=== PATIENT | male | born 1990 | race Caucasian/White ===

== ENCOUNTER 2023-03-20 14:29 | Emergency (ER) | payer MEDICAID ==
[~2023-03-20] VITALS: Ht 180.3 cm; Wt 106.0 kg
[2023-03-20] MEDS ORDERED: NAPR-56 PO (17:30)
[2023-03-20 18:04] VITALS: BP 132/93; PULSE 75; RESP 18; TEMP 98; O2SAT 98
== END 2023-03-20 19:38 | disposition home or self-care (01) ==
LOC: ER 14:30
DX: M79.644 Pain in right finger(s) (principal); M79.89 Other specified soft tissue disorders
CPT/HCPCS: 29125; 73130; 99283

== ENCOUNTER 2024-06-23 15:11 | Inpatient (IN) | payer BC, MEDICAID, OTHER ==
[~2024-06-23] VITALS: Ht 180.3 cm; Wt 103.6 kg
[2024-06-23 16:10] LABS: ALANINE AMINOTRANSFERASE 862 U/L (12-78); ALBUMIN/GLOBULIN RATIO 1.1 (1.1-1.5); ALKALINE PHOSPHATASE 172 IU/L (46-116); ANION GAP 7 (8-16); ASPARTATE AMINO TRANSFERASE 381 U/L (10-37); BILIRUBIN,TOTAL 0.8 MG/DL (0.1-1.0); BLOOD UREA NITROGEN 8 MG/DL (7-18); BUN/CREATININE RATIO 11.3 (10.0-20.0); CHLORIDE 104 MMOL/L (99-107); CREATININE 0.71 MG/DL (0.60-1.10); GLUCOSE 121 MG/DL (70-104); LIPASE 19 U/L (16-77); POTASSIUM 4.1 MMOL/L (3.5-5.1); SODIUM 138 MMOL/L (135-145); TOTAL CARBON DIOXIDE 26.6 MMOL/L (24-32); TOTAL PROTEIN 7.6 G/DL (6.4-8.2); eCRCL 158 ML/MIN; eGFR > 90 ML/MIN
[2024-06-23 16:13] LABS: BASOPHILS # (AUTO) 0.1 X10'3 (0-0.2); BASOPHILS % (AUTO) 0.8 % (0-1); EOSINOPHILS # (AUTO) 0.5 X10'3 (0-0.9); EOSINOPHILS % (AUTO) 4.7 % (0-6); HEMATOCRIT 48.7 % (42.0-52.0); LYMPHOCYTES # (AUTO) 2.5 X10'3 (1.1-4.8); LYMPHOCYTES % (AUTO) 25.1 % (21-51); MEAN CORPUSCULAR HEMOGLOBIN 30.9 PG (27.0-31.0); MEAN CORPUSCULAR VOLUME 88.3 FL (78-98); MEAN PLATELET VOLUME 8.2 FL (7.4-10.4); MONOCYTES # (AUTO) 0.9 X10'3 (0-0.9); MONOCYTES % (AUTO) 8.8 % (2-12); NEUTROPHILS % (AUTO) 60.6 % (42-75); PLATELET COUNT 258 X10'3 (140-440); RED BLOOD COUNT 5.51 X10'6 (4.70-6.10); RED CELL DISTRIBUTION WIDTH 13.2 % (11.5-14.5); WHITE BLOOD COUNT 9.9 X10'3 (4.5-11.0)
[2024-06-23] MEDS ORDERED: metoclopramide 5 mg/ml inj IV PRN (16:45)
[2024-06-23] MEDS ORDERED: acetaminophen 325mg tablet PO PRN (16:45)
[2024-06-23] MEDS ORDERED: potassium Cl 40MEQ/1/2NS 520ml 520 ML IV PRN (16:45)
[2024-06-23] MEDS ORDERED: mag hydrox/Alum hydrox/simeth 30ml oral suspension PO PRN (16:45)
[2024-06-23] MEDS ORDERED: magnesium sulf-water 2g/50mL 50 ML IV PRN (16:45)
[2024-06-23] MEDS ORDERED: potassium Cl 20 mEq SR tablet PO PRN ×2 (16:45)
[2024-06-23] MEDS ORDERED: magnesium hydroxide 30ml (MOM) UD suspension PO PRN (16:45)
[2024-06-23] MEDS ORDERED: magnesium sulf-water 4G/100mL 100 ML IV PRN (16:45)
[2024-06-23] MEDS ORDERED: ondansetron 4mg rapidly disintigrating tab PO PRN (16:55)
[2024-06-23] MEDS: normal saline 1000ML IV soln IVB ONE (17:18)
[2024-06-23] MEDS: ondansetron/PF 4mg/2ml inj IV ONE (17:18)
[2024-06-23] MEDS: morphine 4 MG/ML inj SYRINge IV ONE (17:20)
[2024-06-23] MEDS: sincalide inj 2 MCG in normal saline 100ml IV soln 98 ML IV ONE (18:04)
[2024-06-23] MEDS: normal saline 1000ml 1,000 ML IV SCH (18:06)
[2024-06-23] MEDS ORDERED: NO HOME MEDS (18:14)
[2024-06-23] MEDS: nicotine 14mg patch - 24hr TD ONE (19:14)
[2024-06-23 19:20] VITALS: BP 124/78; PULSE 60; RESP 14; TEMP 97.9; O2SAT 98
[2024-06-23] MEDS ORDERED: metroNIDAZOLE-Flagyl 500mg/NS 100ml IVPB IV SCH (19:55)
[2024-06-23] MEDS: K and/or MAG REPLACEMENT MC SCH (20:00)
[2024-06-23] MEDS: metroNIDAZOLE-Flagyl 500mg/NS 100ml IVPB IV SCH (20:58)
[2024-06-23] MEDS: docusate sod 100mg capsule PO SCH (20:58)
[2024-06-23] MEDS ORDERED: hydrALAZINE 20mg/ml inj. IV PRN (21:00)
[2024-06-23] MEDS: CefTRIAXone 2gm/D5W 50ml IV SCH (21:44)
[2024-06-23] MEDS: HYDROcodone/acetaminophen 10/325mg tab PO PRN (21:46)
[2024-06-23 22:00] VITALS: BP 110/70; PULSE 73; RESP 18; TEMP 98; O2SAT 97
[2024-06-24 06:00] VITALS: BP 112/56; PULSE 57; RESP 18; TEMP 97.3; O2SAT 97
[2024-06-24 06:39] LABS: BASOPHILS # (AUTO) 0.1 X10'3 (0-0.2); BASOPHILS % (AUTO) 0.9 % (0-1); EOSINOPHILS # (AUTO) 0.5 X10'3 (0-0.9); EOSINOPHILS % (AUTO) 5.8 % (0-6); HEMATOCRIT 42.7 % (42.0-52.0); HEMOGLOBIN 14.7 g/dl (14.0-17.9); LYMPHOCYTES # (AUTO) 2.5 X10'3 (1.1-4.8); LYMPHOCYTES % (AUTO) 27.8 % (21-51); MEAN CORPUSCULAR HEMOGLOBIN 30.3 PG (27.0-31.0); MEAN CORPUSCULAR HGB CONC 34.4 g/dL (33.0-36.5); MEAN PLATELET VOLUME 8.2 FL (7.4-10.4); MONOCYTES # (AUTO) 0.8 X10'3 (0-0.9); MONOCYTES % (AUTO) 9.4 % (2-12); NEUTROPHILS % (AUTO) 56.1 % (42-75); PLATELET COUNT 216 X10'3 (140-440); RED BLOOD COUNT 4.85 X10'6 (4.70-6.10); RED CELL DISTRIBUTION WIDTH 13.1 % (11.5-14.5); WHITE BLOOD COUNT 8.9 X10'3 (4.5-11.0)
[2024-06-24 06:54] LABS: ALANINE AMINOTRANSFERASE 660 U/L (12-78); ALBUMIN 3.2 G/DL (3.4-5.0); ALKALINE PHOSPHATASE 134 IU/L (46-116); ANION GAP 6 (8-16); ASPARTATE AMINO TRANSFERASE 225 U/L (10-37); BILIRUBIN,TOTAL 0.9 MG/DL (0.1-1.0); BLOOD UREA NITROGEN 8 MG/DL (7-18); CALCIUM 8.3 MG/DL (8.5-10.1); CHLORIDE 107 MMOL/L (99-107); CREATININE 0.73 MG/DL (0.60-1.10); GLUCOSE 105 MG/DL (70-104); MAGNESIUM 1.8 MG/DL (1.5-2.4); POTASSIUM 3.9 MMOL/L (3.5-5.1); SODIUM 140 MMOL/L (135-145); TOTAL CARBON DIOXIDE 27.5 MMOL/L (24-32); TOTAL PROTEIN 6.3 G/DL (6.4-8.2); eCRCL 153 ML/MIN; eGFR > 90 ML/MIN
[2024-06-24] MEDS: nicotine 14mg patch - 24hr TD SCH (08:00)
[2024-06-24 11:16] VITALS: BP 109/72; PULSE 58; RESP 16; TEMP 98; O2SAT 97
[2024-06-24 18:00] VITALS: BP 126/90; PULSE 72; RESP 20; TEMP 97.6; O2SAT 94
[2024-06-24 22:00] VITALS: BP 116/69; PULSE 65; RESP 18; TEMP 97.9; O2SAT 97
[2024-06-25 06:00] VITALS: BP 105/72; PULSE 55; RESP 18; TEMP 97.6; O2SAT 98
[2024-06-25 07:05] LABS: BASOPHILS # (AUTO) 0.1 X10'3 (0-0.2); BASOPHILS % (AUTO) 1.1 % (0-1); EOSINOPHILS # (AUTO) 0.4 X10'3 (0-0.9); EOSINOPHILS % (AUTO) 4.6 % (0-6); HEMATOCRIT 43.7 % (42.0-52.0); HEMOGLOBIN 14.9 g/dl (14.0-17.9); LYMPHOCYTES # (AUTO) 2.7 X10'3 (1.1-4.8); LYMPHOCYTES % (AUTO) 30.5 % (21-51); MEAN CORPUSCULAR HEMOGLOBIN 30.3 PG (27.0-31.0); MEAN CORPUSCULAR VOLUME 89.2 FL (78-98); MEAN PLATELET VOLUME 8.1 FL (7.4-10.4); MONOCYTES # (AUTO) 0.6 X10'3 (0-0.9); MONOCYTES % (AUTO) 6.9 % (2-12); NEUTROPHILS # (AUTO) 5.1 X10'3 (1.8-7.7); NEUTROPHILS % (AUTO) 56.9 % (42-75); PLATELET COUNT 218 X10'3 (140-440); RED CELL DISTRIBUTION WIDTH 13.2 % (11.5-14.5); WHITE BLOOD COUNT 8.9 X10'3 (4.5-11.0)
[2024-06-25 07:23] LABS: ALANINE AMINOTRANSFERASE 467 U/L (12-78); ALBUMIN 3.4 G/DL (3.4-5.0); ALBUMIN/GLOBULIN RATIO 1.1 (1.1-1.5); ALKALINE PHOSPHATASE 132 IU/L (46-116); ANION GAP 5 (8-16); ASPARTATE AMINO TRANSFERASE 90 U/L (10-37); BILIRUBIN,TOTAL 0.4 MG/DL (0.1-1.0); BLOOD UREA NITROGEN 8 MG/DL (7-18); BUN/CREATININE RATIO 11.6 (10.0-20.0); CALCIUM 8.6 MG/DL (8.5-10.1); CHLORIDE 107 MMOL/L (99-107); CREATININE 0.69 MG/DL (0.60-1.10); GLUCOSE 97 MG/DL (70-104); MAGNESIUM 1.9 MG/DL (1.5-2.4); POTASSIUM 4.3 MMOL/L (3.5-5.1); SODIUM 142 MMOL/L (135-145); TOTAL CARBON DIOXIDE 29.8 MMOL/L (24-32); TOTAL PROTEIN 6.6 G/DL (6.4-8.2); eCRCL 162 ML/MIN; eGFR > 90 ML/MIN
[2024-06-25] MEDS: sincalide inj 2 MCG in normal saline 100ml IV soln 98 ML IV ONE (09:50)
[2024-06-25 10:00] VITALS: BP 128/74; PULSE 62; RESP 16; TEMP 97.8; O2SAT 98
[2024-06-25] MEDS: acetaminophen 325mg tablet PO PRN (10:44)
[2024-06-25] MEDS: HYDROcodone/acetaminophen 5mg/325mg tablet PO PRN (17:03)
[2024-06-25 18:00] VITALS: BP 126/78; PULSE 62; RESP 18; TEMP 98.4; O2SAT 96
[2024-06-25 20:00] VITALS: RESP 14; O2SAT 96
[2024-06-25] MEDS: diatr meglu/diatrizoate 30ml oral sol.-(3 dose) bottle PO SCH (21:02)
[2024-06-25 22:00] VITALS: BP 122/71; PULSE 58; RESP 18; TEMP 97.6; O2SAT 97
[2024-06-26 04:54] VITALS: O2SAT 96
[2024-06-26 06:00] VITALS: BP 96/54; PULSE 58; RESP 18; TEMP 98.3; O2SAT 96
[2024-06-26 06:02] LABS: BASOPHILS # (AUTO) 0.1 X10'3 (0-0.2); BASOPHILS % (AUTO) 0.7 % (0-1); EOSINOPHILS # (AUTO) 0.4 X10'3 (0-0.9); EOSINOPHILS % (AUTO) 4.4 % (0-6); HEMATOCRIT 40.3 % (42.0-52.0); HEMOGLOBIN 13.8 g/dl (14.0-17.9); LYMPHOCYTES # (AUTO) 2.5 X10'3 (1.1-4.8); LYMPHOCYTES % (AUTO) 27.6 % (21-51); MEAN CORPUSCULAR HEMOGLOBIN 29.7 PG (27.0-31.0); MEAN CORPUSCULAR HGB CONC 34.2 g/dL (33.0-36.5); MEAN PLATELET VOLUME 8.3 FL (7.4-10.4); MONOCYTES # (AUTO) 0.7 X10'3 (0-0.9); MONOCYTES % (AUTO) 7.5 % (2-12); NEUTROPHILS # (AUTO) 5.4 X10'3 (1.8-7.7); NEUTROPHILS % (AUTO) 59.8 % (42-75); PLATELET COUNT 189 X10'3 (140-440); RED BLOOD COUNT 4.64 X10'6 (4.70-6.10); WHITE BLOOD COUNT 9.1 X10'3 (4.5-11.0)
[2024-06-26 06:25] LABS: ALANINE AMINOTRANSFERASE 326 U/L (12-78); ALBUMIN/GLOBULIN RATIO 1.1 (1.1-1.5); ALKALINE PHOSPHATASE 105 IU/L (46-116); ANION GAP 4 (8-16); ASPARTATE AMINO TRANSFERASE 70 U/L (10-37); BILIRUBIN,TOTAL 0.5 MG/DL (0.1-1.0); BLOOD UREA NITROGEN 5 MG/DL (7-18); BUN/CREATININE RATIO 7.7 (10.0-20.0); CALCIUM 8.2 MG/DL (8.5-10.1); CHLORIDE 109 MMOL/L (99-107); CREATININE 0.65 MG/DL (0.60-1.10); GLUCOSE 97 MG/DL (70-104); MAGNESIUM 1.8 MG/DL (1.5-2.4); POTASSIUM 4.1 MMOL/L (3.5-5.1); SODIUM 141 MMOL/L (135-145); TOTAL CARBON DIOXIDE 28.3 MMOL/L (24-32); TOTAL PROTEIN 5.7 G/DL (6.4-8.2); eCRCL 172 ML/MIN; eGFR > 90 ML/MIN
[2024-06-26 10:00] VITALS: BP 114/59; PULSE 56; RESP 20; TEMP 97.6; O2SAT 97
[2024-06-26] MEDS ORDERED: iohexol 300mg/ml 100ml inj. ONE (10:20)
[2024-06-26 12:50] VITALS: RESP 16
== END 2024-06-26 15:40 | disposition home or self-care (01) | DRG 446 ==
LOC: ER 15:11 → ED HOLD 16:51 → SUR 3N 19:20
PROVIDERS: ADMIT Nurse Practitioner Family; ATTEND Nurse Practitioner Family
PROC: CF1C1ZZ Planar Nuclear Medicine Imaging of Hepatobiliary System, All using Technetium 99m (Tc-99m) (ICD-10-PCS; 2024-06-25)
PROC: BW211ZZ Computerized Tomography (CT Scan) of Abdomen and Pelvis using Low Osmolar Contrast (ICD-10-PCS; principal; 2024-06-26)
DX: K81.0 Acute cholecystitis (principal); K76.0 Fatty (change of) liver, not elsewhere classified; R74.01 Elevation of levels of liver transaminase levels; E66.811 Obesity, class 1; F17.210 Nicotine dependence, cigarettes, uncomplicated; Z71.6 Tobacco abuse counseling; Z79.899 Other long term (current) drug therapy; Z68.31 Body mass index [BMI] 31.0-31.9, adult
CPT/HCPCS: 36415; 74177; 76700; 78227; 80053; 82948; 83605; 83690; 83735; 85025; 86885; 86900; 86901; 87040; 87081; 96361; 96374; 96375; 97530; 99285; A9537; G0378; J0696; J2270; J2405; J2805; J3490; J7030; Q9963; Q9967